=== PATIENT | male | born 1950 | race Caucasian/White ===

== ENCOUNTER → 2016-06-22 | Outpatient (CLI) | payer MEDICARE ==
[~2016-06-22] MED LIST: AMLODIPINE5 MG PO; ANTIVERT25 MG PO; ASPIR 8181 MG PO; CELEXA20 MG PO; DIOVAN320 MG PO; HYDRODIURIL25 MG PO; NAPROSYN500 MG PO; NASONEX0.05 MG/AC NS; QUINAPRIL20 MG PO; SYMBICORT1 AER IH; XARE20MG PO
[2016-06-22 09:07] LABS: HEMOGLOBIN A1c 6.4 % (4.8-5.6)
[2016-06-22 09:18] LABS: ALBUMIN 3.8 gm/dl (3.1-4.5); ALKALINE PHOSPHATASE 52 U/L (45-117); BUN 17 mg/dl (7-24); CARBON DIOXIDE 27 mmol/L (21-32); CHLORIDE 108 mmol/L (98-107); CHOLESTEROL 144 mg/dL (<200); CPK 450 U/L (39-308); EST GLOM FILT AFRICAN AMERICAN > 60 ml/min; GLUCOSE 117 mg/dL (65-99); HDL CHOLESTEROL 54 mg/dl (40-60); LDL CHOLESTEROL 78 mg/dL (9-159); POTASSIUM 3.9 mmol/L (3.5-5.1); SGOT/AST 36 IU/L (3-35); SGPT/ALT 37 U/L (12-78); SODIUM 141 mmol/L (136-145); TOTAL PROTEIN 7.2 gm/dL (6.4-8.2); TRIGLYCERIDES 61 mg/dl (<150); VLDL CHOLESTEROL 12 mg/dL (6-40)
== END | disposition home or self-care (01) ==
LOC: LAB 08:29
PROVIDERS: Family Medicine
DX: E11.9 Type 2 diabetes mellitus without complications (principal); I10 Essential (primary) hypertension; E78.00 Pure hypercholesterolemia, unspecified

== ENCOUNTER → 2016-07-14 | Outpatient (CLI) | payer MEDICARE ==
[2016-07-14 10:01] LABS: ALBUMIN 3.7 gm/dl (3.1-4.5); ALKALINE PHOSPHATASE 54 U/L (45-117); BILIRUBIN, TOTAL 0.6 mg/dl (0.2-1.0); BUN 19 mg/dl (7-24); CARBON DIOXIDE 25 mmol/L (21-32); CHLORIDE 108 mmol/L (98-107); CPK 292 U/L (39-308); EST GLOM FILT AFRICAN AMERICAN > 60 ml/min; GLUCOSE 177 mg/dL (65-99); POTASSIUM 3.7 mmol/L (3.5-5.1); SGOT/AST 27 IU/L (3-35); SGPT/ALT 33 U/L (12-78); SODIUM 143 mmol/L (136-145); TOTAL PROTEIN 7.2 gm/dL (6.4-8.2)
== END | disposition home or self-care (01) ==
LOC: LAB 08:58
PROVIDERS: Family Medicine
DX: R74.8 Abnormal levels of other serum enzymes (principal)

== ENCOUNTER 2016-12-23 14:28 | Inpatient (IN) | payer MEDICARE ==
[~2016-12-23] VITALS: Ht 177.8 cm; Wt 101.2 kg
--- NOTE | ~2016-12-23 | CON ---
[place], [place] REPORT OF CONSULTATION [id number] UNIT #: [id number] ROOM: 405 DOCTOR: JORDAN COE MD BIRTHDATE: [birth year] DOS: REQUESTING PHYSICIAN: Dr. Landry. REASON FOR CONSULTATION: Near syncope. ASSESSMENT: 1. Current presentation with near syncope, mainly with looking up. 2. History of atrial fibrillation. The patient currently in normal sinus rhythm, on Xarelto. 3. Abnormal baseline EKG, consistent with right bundle-branch block. 4. Hypertension. 5. Hyperlipidemia. 6. Diabetes mellitus. 7. Normal echocardiogram and stress test in [address] Guerra. 8. Right carotid bruit. PLAN: 1. Cycle cardiac enzymes. 2. Check orthostatics. 3. Consider switching off diuretic (hydrochlorothiazide). 4. No option for beta mariposa in view of patient's baseline heart rate. 5. Consider ____ bilateral carotid duplex. 6. Consider Neurology consult and MRA of the brain. 7. No further cardiac testing at this time. 8. The patient can be discharged home from the Cardiology point of view. 9. Follow up with Dr. Guerra as an outpatient within 1-2 weeks. 10. Consider long-term monitoring as an outpatient. HISTORY OF PRESENT ILLNESS: The patient is a pleasant 66-year-old gentleman well known to our group with Dr. Guerra. The patient carries history of atrial fibrillation. A full workup was done in 2014, which was normal. Apparently, the patient came into the hospital with 2 episodes of sudden onset of feeling of hot water being poured over his head and his body, mainly when he is looking up, one them while he was shopping and the second one while he was sitting at home doing his usual work on the computer, but which is positioned in higher position. At no time he had any chest pain, chest pressure, heaviness or tightness. No jaw pain or left arm pain. No back pain. The patient denies any symptomatic palpitation or any associated dizziness, lightheadedness or near syncope. No blurry vision. No diplopia. No cough. No fever. No chills. The patient maintains good appetite. No weight loss. He is active, exercises routinely up to 2-1/2 miles of walking on routine basis. He has also elliptical at home, which he uses on routine basis when the weather is cold. PAST MEDICAL HISTORY: As detailed in my assessment. SOCIAL HISTORY: The patient denies any current tobacco, alcohol or illicit drug abuse. FAMILY HISTORY: The patient's mother of breast cancer, his father [place], [place] REPORT OF CONSULTATION NAME: HELENA MARINELLI UNIT #: [id number] ROOM: 405 DOCTOR: JORDAN COE MD BIRTHDATE: [birth year] following a hernia surgery from pneumonia. He has one sister with no reported heart problems. CURRENT MEDICATIONS: Cozaar, Norvasc, Diovan, hydrochlorothiazide, Protonix, Zocor, insulin, Xarelto, Restoril, Zofran, bisacodyl and Tylenol. ALLERGIES: The patient has no known drug allergies. REVIEW OF SYSTEMS: Currently, the patient denies any headache, diplopia or blurry vision. No fever. No chills. No night sweats. No abdominal pain. No bright red blood per rectum or tarry stools. No joint pain. No muscular pain. No anxiety. The patient admits to both depression and anxiety. No polyuria. No polydipsia. No skin rash. Review of all other systems has been negative. PHYSICAL EXAMINATION: GENERAL: The patient alert, oriented x 3, quite pleasant. VITAL SIGNS: The patient's blood pressure 135/53, heart rate 57, respiratory rate of 14, temperature 98.1. HEENT: Extraocular muscle intact. Pupils equal, round, reactive to light. Conjunctivae: No pallor. Throat: No petechiae. NECK: Good carotid upstroke. Faint bruits could be heard over the right carotid. No lymphadenopathy. No thyromegaly. HEART: S1, S2 with holosystolic murmur at left upper sternal border. No rub. No sternal heave. CHEST AND BACK: No deformities. LUNGS: Significant decrease in air movement. Minimal rhonchi could be heard at the base, improved with deep cough. No wheezing. No rales. ABDOMEN: Obese, soft, nontender, present bowel sounds. No masses. No bruits. LOWER EXTREMITIES: There is no edema, with faint distal pulses. NEUROLOGIC: Grossly nonfocal. SKIN: No significant rash. LABORATORY DATA: White count 7.4, hemoglobin 15.5. There are 22% lymphocytes. Glucose 121. Hemoglobin A1c 6.3. Vitamin D is 27. Troponin 0.015, repeat 0.015. Normal thyroid function test. JORDAN COE MD CM:CONSTR:REPORT OF CONSULTATION 1157 12/24/16 1939 interface
--- NOTE | ~2016-12-23 | PR ---
[place], [place] PROGRESS NOTE NAME: HELENA MARINELLI [facility] #: [id number] UNIT #: [id number] ROOM: 405 DOCTOR: URSZULA PHIPPS,ALEXUS BIRTHDATE: [birth year] DOS: 12/26/2016 SUBJECTIVE: The patient was seen at his bedside today, 12/26/2016, for followup of his possible cerebrovascular events. He has not had any further events since hospitalized, but has avoided looking up. He did have an echocardiogram today, which showed normal left ventricular size and systolic function. He does have diastolic relaxation abnormalities. No obvious valve abnormalities or cardiac sources of emboli were seen. The MRA of his neck is not yet done. PHYSICAL EXAMINATION: VITAL SIGNS: Today his pulse is 60 and regular; blood pressure is 130/40. He is afebrile and weighs 101.2 kilograms. NECK: Supple. He has no jugular distention. Carotids are full. LUNGS: Respirations are unlabored. His chest is clear to auscultation and percussion. HEART: Has a regular rhythm with an S4 gallop. ABDOMEN: Benign. EXTREMITIES: Showed no edema. IMPRESSION: Possible vertebrobasilar transient ischemic attack, possibly caused by extension of the neck. PLAN: We are still awaiting his MR angiography of the neck. In the interim, I have started him on an aspirin in addition to his Xarelto. We will continue to follow him in the hospital pending his further evaluation. He may require Neurology evaluation post-discharge. I thank the hospitalist physicians for asking our advice regarding his care. ALEXUS SEAMAN MD CM:PNTRANS [id number] ALEXUS SEAMAN MD 12/26/16 171 interface
--- NOTE | ~2016-12-23 | PR ---
[place], [place] PROGRESS NOTE NAME: HELENA MARINELLI [facility] #: [id number] UNIT #: [id number] ROOM: 405 DOCTOR: ALEXUS SEAMAN MD BIRTHDATE: [birth year] DOS: 12/25/2016 SUBJECTIVE: The patient was seen at his bedside today, 12/25/2016, for followup of episodic lightheadedness. The patient describes 2 episodes in the last week where tipping his head back resulted in a feeling of warmth over his entire body along with lightheadedness and generalized weakness similar to if he could pass out. He did not lose consciousness or fall on either occasion, but felt close. Both episodes occurred whenever he tipped his head backwards. The suspicion is that he does have neurovascular problems in his neck, resulting in near syncope. PHYSICAL EXAMINATION: VITAL SIGNS: Today, his pulse is 52 and regular, blood pressure is 128/68. He is afebrile. NECK: Supple. He has no jugular distention. Carotids are full. I heard no bruits. He had no neck or supraclavicular masses. LUNGS: Respirations were unlabored. His chest was clear to auscultation and percussion. HEART: Had a regular rhythm with an S4 gallop. He had no S3 or murmur. The PMI was not displaced. ABDOMEN: Soft and normally active without masses, organomegaly or bruits. EXTREMITIES: Showed no edema. Peripheral pulses were easily palpated bilaterally. LABORATORY DATA: The patient is waiting for a carotid MRA and echocardiogram, neither have been completed as of 2:00 this afternoon. IMPRESSION: 1. Paroxysmal atrial fibrillation. The patient is currently in sinus rhythm on Xarelto. 2. Hypertension. 3. Hyperlipidemia. 4. Type 2 diabetes mellitus. PLAN: TSH is normal. Cardiac troponin has been negative x 3. An echocardiogram and carotid MRA have been ordered and we will follow up on this later today. For now, I would continue his Xarelto anticoagulant along with his losartan, amlodipine and hydrochlorothiazide for antihypertensives as well as his simvastatin for hyperlipidemia. We will review the results of his carotid MRA when they are available along with his echocardiogram. Further requests and recommendations will be made after those studies have been reviewed. I thank the hospitalist physicians for asking our advice regarding the patient's care. [place], [place] PROGRESS NOTE NAME: HELENA MARINELLI UNIT #: [id number] ROOM: 405 DOCTOR: ALEXUS SEAMAN MD BIRTHDATE: [birth year] ALEXUS SEAMAN MD CM:PNTRANS [id number] ALEXUS SEAMAN MD 12/25/16 2316 interface
[2016-12-23 14:31] VITALS: BP 150/67
[2016-12-23 15:00] VITALS: BP 148/80
--- NOTE | 2016-12-23 15:01 | NUR ---
RN HAD ALREADY DONE EKG BEFORE RESPIRATORY ARRIVED TO ROOM.
[2016-12-23 15:07] LABS: BASO # 0.1 10*3/uL (0.0-0.1); BASO % 0.8 % (0.0-1.0); EOS # 0.2 10*3/uL (0.0-0.4); EOS % 3.3 % (1.0-4.0); HEMATOCRIT 46.3 % (42.0-52.0); HEMOGLOBIN 15.9 g/dl (14.0-18.0); LYMPH # 1.7 10*3/uL (1.3-4.4); LYMPH % 23.1 % (27.0-41.0); MEAN CORPUSCULAR HGB 28.9 pg (27.0-31.0); MEAN CORPUSCULAR HGB CONC 34.3 g/dl (33.0-37.0); MEAN PLATELET VOLUME 9.4 fl (9.6-12.3); MONO # 0.5 10*3/uL (0.1-1.0); MONO % 6.7 % (3.0-9.0); NEUT # 4.8 10*3/uL (2.3-7.9); NEUT % 65.8 % (47.0-73.0); PLATELET COUNT AUTOMATED 195 10*3/uL (130-400); RED BLOOD COUNT 5.51 10*6/uL (4.50-5.90); RED CELL DISTRI WIDTH 13.3 % (0-14.5); WHITE BLOOD COUNT 7.3 10*3/uL (4.8-10.8)
[2016-12-23 15:17] LABS: ACT PARTIAL THROMBO TIME 31.2 SECONDS (20.8-31.5); INTERNATIONAL NORM RATIO 1.1 (2.0-3.5)
[2016-12-23 15:24] LABS: ALKALINE PHOSPHATASE 58 U/L (45-117); BUN 19 mg/dl (7-24); CHLORIDE 106 mmol/L (98-107); CREATININE 1.32 mg/dL (0.70-1.30); SGOT/AST 26 IU/L (3-35); SGPT/ALT 31 U/L (12-78); SODIUM 141 mmol/L (136-145); TOTAL PROTEIN 7.8 gm/dL (6.4-8.2)
[2016-12-23 15:25] LABS: TROPONIN I < 0.015 ng/ml (<0.045)
[2016-12-23 15:44] VITALS: BP 142/72
[2016-12-23 16:17] VITALS: BP 153/64
--- NOTE | 2016-12-23 16:19 | NUR ---
[facility] 66, admitted to , under the services of RICHARD Morgan DO with a diagnosis of CHEST PAIN. Chief complaint is DENIES AT PRESENT. Patient arrived via bed from ER. Monitor applied. Initial assessment completed. Vital signs taken and recorded. RICHARD MORGAN DO notified of admission to the unit. Orders received. See assessment for past medical history, medications and allergies. Patient and/or family oriented to unit. [facility] visitation policy reviewed. Clothing/patient valuable form completed. RAY ANGELES
[2016-12-23] MEDS ORDERED: ZOCOR10 MG PO (16:41)
[2016-12-23] MEDS ORDERED: ONGLYZA2.5 MG PO (16:42)
[2016-12-23] MEDS ORDERED: NASACORT16.9 ML NAS (16:44)
[2016-12-23] MEDS ORDERED: NORVASC10 MG PO (16:47)
--- NOTE | 2016-12-23 17:37 | NUR ---
DR GRIDER NOTIFIED OF CONSULT.
[2016-12-23 20:00] VITALS: BP 154/73
[2016-12-24] VITALS: BP 138/69
[2016-12-24 07:16] LABS: BASO % 0.4 % (0.0-1.0); EOS # 0.3 10*3/uL (0.0-0.4); HEMATOCRIT 46.3 % (42.0-52.0); HEMOGLOBIN 15.5 g/dl (14.0-18.0); LYMPH # 1.7 10*3/uL (1.3-4.4); LYMPH % 22.3 % (27.0-41.0); MEAN CORPUSCULAR HGB 28.4 pg (27.0-31.0); MEAN CORPUSCULAR HGB CONC 33.5 g/dl (33.0-37.0); MEAN PLATELET VOLUME 9.5 fl (9.6-12.3); MONO # 0.6 10*3/uL (0.1-1.0); MONO % 8.2 % (3.0-9.0); NEUT # 4.8 10*3/uL (2.3-7.9); NEUT % 64.7 % (47.0-73.0); PLATELET COUNT AUTOMATED 206 10*3/uL (130-400); RED BLOOD COUNT 5.45 10*6/uL (4.50-5.90); RED CELL DISTRI WIDTH 13.4 % (0-14.5); WHITE BLOOD COUNT 7.4 10*3/uL (4.8-10.8)
[2016-12-24 07:45] LABS: BUN 17 mg/dl (7-24); CHLORIDE 104 mmol/L (98-107); CHOLESTEROL 122 mg/dL (<200); CREATININE 1.16 mg/dL (0.70-1.30); FREE T4 1.19 ng/dl (0.76-1.46); HDL CHOLESTEROL 51 mg/dl (40-60); LDL CHOLESTEROL 50 mg/dL (9-159); POTASSIUM 3.9 mmol/L (3.5-5.1); SODIUM 139 mmol/L (136-145); TRIGLYCERIDES 103 mg/dl (<150); VLDL CHOLESTEROL 21 mg/dL (6-40)
[2016-12-24 08:00] VITALS: BP 135/63
[2016-12-24 08:08] LABS: VITAMIN D, 25-HYDROXY 27.5 ng/mL (30-100)
--- NOTE | 2016-12-24 10:35 | NUR ---
CALLED ON PT'S CONFUSION OF 1000 MED PASS. WILL BE UP TO SEE PT SOON.
[2016-12-24 12:00] VITALS: BP 152/61
[2016-12-24 16:00] VITALS: BP 133/63
[2016-12-24 20:00] VITALS: BP 124/70
[2016-12-25] VITALS: BP 97/49
--- NOTE | 2016-12-25 00:55 | NUR ---
24 HR chart check completed.
[2016-12-25 07:29] LABS: BASO # 0.1 10*3/uL (0.0-0.1); BASO % 0.6 % (0.0-1.0); EOS # 0.6 10*3/uL (0.0-0.4); EOS % 6.4 % (1.0-4.0); HEMATOCRIT 43.8 % (42.0-52.0); HEMOGLOBIN 15.1 g/dl (14.0-18.0); LYMPH # 1.6 10*3/uL (1.3-4.4); LYMPH % 18.3 % (27.0-41.0); MEAN CELL VOLUME 83.7 fl (80.0-94.0); MEAN CORPUSCULAR HGB 28.9 pg (27.0-31.0); MEAN CORPUSCULAR HGB CONC 34.5 g/dl (33.0-37.0); MEAN PLATELET VOLUME 9.7 fl (9.6-12.3); MONO # 0.8 10*3/uL (0.1-1.0); MONO % 9.1 % (3.0-9.0); NEUT # 5.7 10*3/uL (2.3-7.9); NEUT % 65.1 % (47.0-73.0); PLATELET COUNT AUTOMATED 208 10*3/uL (130-400); RED BLOOD COUNT 5.23 10*6/uL (4.50-5.90); RED CELL DISTRI WIDTH 13.2 % (0-14.5); WHITE BLOOD COUNT 8.8 10*3/uL (4.8-10.8)
[2016-12-25 07:44] LABS: BUN 17 mg/dl (7-24); CHLORIDE 105 mmol/L (98-107); POTASSIUM 3.6 mmol/L (3.5-5.1); SODIUM 141 mmol/L (136-145)
[2016-12-25 08:00] VITALS: BP 149/68
--- NOTE | 2016-12-25 08:30 | NUR ---
INSIDE SALES ASSOCIATE VS. PT IN BATHROOM.
--- NOTE | 2016-12-25 09:30 | NUR ---
PT RESTING IN BED, NO DISTRESS NOTED. PT DENIES ANY COMPLAINTS. CALL LIGHT WITHIN REACH.
--- NOTE | 2016-12-25 09:30 | NUR ---
Measurement Specialist in to talk to patient. Patient states lives at HOME with HIS . There are 12 steps in the home. Physician: DR COLIN Pharmacy: [facility]--ONLY FOR MEDS, NOT HOSPITAL Home health services: NONE Patient's level of ADLs: INDEPENDENT Patient has working utilities: YES DME: NONE Follow-up physician's appointment after d/c: WILL BE MADE PRIOR TO DC Does patient want to access PORTAL?: Discharge plan HOME. REMEDIOS LAWSON
[2016-12-25 11:57] VITALS: BP 128/68
--- NOTE | 2016-12-25 12:30 | NUR ---
DR CARLSON IN TO SEE PT AT THIS TIME.
--- NOTE | 2016-12-25 12:47 | NUR ---
MRI FORM COMPLETED WITH PT AT THIS TIME, PT STATES HE DID AT ONE POINT HAVE SOMETHING REMOVED FROM HIS EYE, HE'S NOT SURE IF IT IS METALLIC OR WOOD. STATES THE DR NEVER SAID ANTHING OF ANY SIGNIFICANCE, DISCUSSED WITH DR CARLSON AND STATES OK FOR PT TO GO FOR MRA.
--- NOTE | 2016-12-25 14:14 | NUR ---
HELENA MARINELLI [id number] Please refer to the physician's history and physical for past medical history, comorbid conditions, and allergies. Diagnosis: CHEST PAIN Homar Score: 22,LOW OR NO RISK WOUND DESCRIPTIONS: Location of the wound: LEFT UPPER BACK Type of wound: ABCESS Thickness: Size: 0.5cm x 0.8cm x 0.1cm Tunneling: none Undermining: none Sinus Tract: one Presence of Exudate: Purulent Amount: Light Color: Brown Odor: None Periwound Skin Appearance: Erythema Wound edges: approximated Pain (associated with wound): patient denies pain at time of assessment How does patient state this happened? Patient states he had a cyst that was infected. Patient states he seen Dr. Pérez at his office and Dr. Pérez drained it and told him to apply warm compresses three times a day. This area was healed until Sunday when his "popped" the area open. Patient states he would like to follow up with Dr. Pérez when he is discharged for this area. Surface the patient is resting on: Isoflex SKIN PREVENTION RECOMMENDATION: 1. Pressure redistribution support surface as appropriate 2. Elevate heels 3. Remove boots/TEDS every shift and reapply 4. Head of bed 30 degrees as tolerated 5. Assess nutrition and hydration 6. Manage moisture 7. Avoid the use of containment devices while in bed 8. Use absorptive products on surfaces limit layers of linens on bed 9. Turn and reposition every 1-2 hours in bed and every 1 hour in chair as tolerated 10. Weight shifts every 15 minutes while up in chair 11. Offloading with pillows or device to keep heels elevated off bed 12. Monitor skin at least every shift 13. Inspect under medical devices twice a day WOUND TREATMENT RECOMMENDATIONS: Cleanse area with NS. Apply sureprep and allow to dry and cover with optifoam gentle.
[2016-12-25 16:00] VITALS: BP 122/64
--- NOTE | 2016-12-25 17:02 | NUR ---
WOUND CARE PERFORMED PER ORDER TO LEFT BACK. PT TOLERATED WELL.
[2016-12-25 20:00] VITALS: BP 133/68
--- NOTE | 2016-12-25 20:50 | NUR ---
PATIENT RESTING IN BED WITH NO S/S OF DISTRESS. DENIES CHEST PAIN OR PRESSURE. BED IN LOWEST POSITION, CALL LIGHT IN REACH
[2016-12-26] VITALS: BP 128/64
--- NOTE | 2016-12-26 01:20 | NUR ---
PATIENT RESTING IN BED WITH NO S/S OF DISTRESS. RESPS EASY AND REGULAR. BED IN LOWEST POSITION, CALL LIGHT IN REACH
--- NOTE | 2016-12-26 01:44 | NUR ---
24 HR chart check completed.
--- NOTE | 2016-12-26 07:43 | NUR ---
NOTIFIED DR. ANTOINE OF PT'S BP.
[2016-12-26 08:00] VITALS: BP 130/40; BP 142/80
[2016-12-26 12:00] VITALS: BP 139/72
[2016-12-26 16:00] VITALS: BP 137/64
[2016-12-26] MEDS ORDERED: ASPIRIN ADULT L81 M2 PO (16:20)
[2016-12-26] MEDS ORDERED: Vitamin D PO (16:20)
--- NOTE | 2016-12-26 17:38 | NUR ---
[facility] Discharge instructions reviewed with patient/family. Patient receptive and verbalizes understanding. Follow-up care arranged. Written instructions given to patient/family. RAY ANGELES
== END 2016-12-26 17:38 | disposition home or self-care (01) | DRG 391 ==
LOC: ED 14:28 → EDHOLD 15:42 → 4E 15:42
PROVIDERS: Family Medicine; Hospitalist; Physician Assistant; ADMIT Internal Medicine
DX: K21.9 Gastro-esophageal reflux disease without esophagitis (principal); J18.9 Pneumonia, unspecified organism; I48.0 Paroxysmal atrial fibrillation; E11.65 Type 2 diabetes mellitus with hyperglycemia; I48.2 Chronic atrial fibrillation; R55 Syncope and collapse; E55.9 Vitamin D deficiency, unspecified; E78.5 Hyperlipidemia, unspecified; I34.1 Nonrheumatic mitral (valve) prolapse; I45.10 Unspecified right bundle-branch block; F41.9 Anxiety disorder, unspecified; E66.9 Obesity, unspecified; I10 Essential (primary) hypertension; R07.89 Other chest pain; Z79.01 Long term (current) use of anticoagulants; Z80.3 Family history of malignant neoplasm of breast; Z83.6 Family history of other diseases of the respiratory system; Z83.3 Family history of diabetes mellitus; Z79.899 Other long term (current) drug therapy; Z68.32 Body mass index [BMI] 32.0-32.9, adult

== ENCOUNTER → 2017-01-03 | Outpatient (CLI) | payer MEDICARE ==
[~2017-01-03] MED LIST changes: +ASPIRIN ADULT L81 M2 PO; +NASACORT16.9 ML NAS; +NORVASC10 MG PO; +ONGLYZA2.5 MG PO; +Vitamin D PO; +ZOCOR10 MG PO
[2017-01-03 07:38] LABS: HEMATOCRIT 42.8 % (42.0-52.0); HEMOGLOBIN 14.7 g/dl (14.0-18.0); MEAN CELL VOLUME 85.9 fl (80.0-94.0); MEAN CORPUSCULAR HGB 29.5 pg (27.0-31.0); MEAN CORPUSCULAR HGB CONC 34.3 g/dl (33.0-37.0); MEAN PLATELET VOLUME 10.1 fl (9.6-12.3); RED BLOOD COUNT 4.98 10*6/uL (4.50-5.90); RED CELL DISTRI WIDTH 13.2 % (0-14.5); WHITE BLOOD COUNT 7.1 10*3/uL (4.8-10.8)
[2017-01-03 08:03] LABS: ALBUMIN 3.7 gm/dl (3.1-4.5); ALKALINE PHOSPHATASE 48 U/L (45-117); BUN 24 mg/dl (7-24); CHLORIDE 107 mmol/L (98-107); CHOLESTEROL 116 mg/dL (<200); CREATININE 1.14 mg/dL (0.70-1.30); HDL CHOLESTEROL 49 mg/dl (40-60); LDL CHOLESTEROL 47 mg/dL (9-159); POTASSIUM 3.7 mmol/L (3.5-5.1); SGOT/AST 22 IU/L (3-35); SGPT/ALT 29 U/L (12-78); SODIUM 140 mmol/L (136-145); TRIGLYCERIDES 98 mg/dl (<150); VLDL CHOLESTEROL 20 mg/dL (6-40)
== END ==
LOC: LAB 07:08
PROVIDERS: Family Medicine
DX: I10 Essential (primary) hypertension (principal); E11.9 Type 2 diabetes mellitus without complications; E78.00 Pure hypercholesterolemia, unspecified

== ENCOUNTER → 2017-05-30 | Outpatient (CLI) | payer MEDICARE ==
[2017-05-30 10:31] LABS: ALBUMIN 3.8 gm/dl (3.1-4.5); ALKALINE PHOSPHATASE 61 U/L (45-117); BUN 22 mg/dl (7-24); CHLORIDE 108 mmol/L (98-107); CHOLESTEROL 127 mg/dL (<200); CPK 308 U/L (39-308); CREATININE 1.22 mg/dL (0.70-1.30); HDL CHOLESTEROL 50 mg/dl (40-60); LDL CHOLESTEROL 64 mg/dL (9-159); POTASSIUM 4.3 mmol/L (3.5-5.1); SGOT/AST 27 IU/L (3-35); SGPT/ALT 32 U/L (12-78); SODIUM 142 mmol/L (136-145); TOTAL PROTEIN 7.4 gm/dL (6.4-8.2); TRIGLYCERIDES 65 mg/dl (<150); VLDL CHOLESTEROL 13 mg/dL (6-40)
== END | disposition home or self-care (01) ==
LOC: LAB 09:23
PROVIDERS: Family Medicine
DX: I10 Essential (primary) hypertension (principal); E11.9 Type 2 diabetes mellitus without complications; E78.00 Pure hypercholesterolemia, unspecified

== ENCOUNTER → 2017-08-29 | Outpatient (CLI) | payer MEDICARE ==
[2017-08-29 08:38] LABS: HEMATOCRIT 46.2 % (42.0-52.0); HEMOGLOBIN 15.2 g/dl (14.0-18.0); MEAN CELL VOLUME 86.4 fl (80.0-94.0); MEAN CORPUSCULAR HGB 28.4 pg (27.0-31.0); MEAN CORPUSCULAR HGB CONC 32.9 g/dl (33.0-37.0); MEAN PLATELET VOLUME 9.8 fl (9.6-12.3); RED BLOOD COUNT 5.35 10*6/uL (4.50-5.90); RED CELL DISTRI WIDTH 13.3 % (0-14.5); WHITE BLOOD COUNT 7.1 10*3/uL (4.8-10.8)
[2017-08-29 09:12] LABS: ALBUMIN 3.9 gm/dl (3.1-4.5); ALKALINE PHOSPHATASE 60 U/L (45-117); BUN 20 mg/dl (7-24); CHLORIDE 105 mmol/L (98-107); CHOLESTEROL 113 mg/dL (<200); CPK 409 U/L (39-308); CREATININE 1.22 mg/dL (0.70-1.30); HDL CHOLESTEROL 45 mg/dl (40-60); LDL CHOLESTEROL 51 mg/dL (9-159); POTASSIUM 3.9 mmol/L (3.5-5.1); SGOT/AST 26 IU/L (3-35); SGPT/ALT 29 U/L (12-78); SODIUM 138 mmol/L (136-145); TOTAL PROTEIN 7.4 gm/dL (6.4-8.2); TRIGLYCERIDES 87 mg/dl (<150); VLDL CHOLESTEROL 17 mg/dL (6-40)
== END | disposition home or self-care (01) ==
LOC: LAB 08:05
PROVIDERS: Family Medicine
DX: E11.9 Type 2 diabetes mellitus without complications (principal); E78.00 Pure hypercholesterolemia, unspecified; I10 Essential (primary) hypertension

== ENCOUNTER → 2017-10-03 | Outpatient (CLI) | payer MEDICARE | END | disposition home or self-care (01) | LOC: LAB 09:02 | DX: R74.8 Abnormal levels of other serum enzymes (principal) ==

== ENCOUNTER → 2017-12-04 | Outpatient (CLI) | payer MEDICARE ==
[2017-12-04 08:33] LABS: HEMATOCRIT 47.7 % (42.0-52.0); MEAN CELL VOLUME 85.6 fl (80.0-94.0); MEAN CORPUSCULAR HGB 28.7 pg (27.0-31.0); MEAN CORPUSCULAR HGB CONC 33.5 g/dl (33.0-37.0); MEAN PLATELET VOLUME 9.9 fl (9.6-12.3); RED BLOOD COUNT 5.57 10*6/uL (4.50-5.90); RED CELL DISTRI WIDTH 13.5 % (0-14.5); WHITE BLOOD COUNT 7.5 10*3/uL (4.8-10.8)
[2017-12-04 08:56] LABS: ALBUMIN 3.8 gm/dl (3.1-4.5); ALKALINE PHOSPHATASE 63 U/L (45-117); BUN 16 mg/dl (7-24); CHLORIDE 107 mmol/L (98-107); CHOLESTEROL 119 mg/dL (<200); CPK 188 U/L (39-308); CREATININE 1.22 mg/dL (0.70-1.30); HDL CHOLESTEROL 44 mg/dl (40-60); LDL CHOLESTEROL 57 mg/dL (9-159); POTASSIUM 3.8 mmol/L (3.5-5.1); SGOT/AST 26 IU/L (3-35); SGPT/ALT 30 U/L (12-78); SODIUM 141 mmol/L (136-145); TOTAL PROTEIN 7.7 gm/dL (6.4-8.2); TRIGLYCERIDES 91 mg/dl (<150); VLDL CHOLESTEROL 18 mg/dL (6-40)
== END | disposition home or self-care (01) ==
LOC: LAB 07:57
PROVIDERS: Family Medicine
DX: E78.00 Pure hypercholesterolemia, unspecified (principal); E11.9 Type 2 diabetes mellitus without complications; I10 Essential (primary) hypertension; E55.9 Vitamin D deficiency, unspecified

== ENCOUNTER → 2018-08-21 | Outpatient (CLI) | payer MEDICARE, OTHER ==
[2018-08-21 09:39] LABS: HEMATOCRIT 45.9 % (42.0-52.0); HEMOGLOBIN 15.9 g/dl (14.0-18.0); MEAN CELL VOLUME 84.8 fl (80.0-94.0); MEAN CORPUSCULAR HGB 29.4 pg (27.0-31.0); MEAN CORPUSCULAR HGB CONC 34.6 g/dl (33.0-37.0); MEAN PLATELET VOLUME 9.7 fl (9.6-12.3); RED BLOOD COUNT 5.41 10*6/uL (4.50-5.90); RED CELL DISTRI WIDTH 13.2 % (0-14.5); WHITE BLOOD COUNT 6.5 10*3/uL (4.8-10.8)
[2018-08-21 10:05] LABS: ALBUMIN 3.9 gm/dl (3.1-4.5); ALKALINE PHOSPHATASE 56 U/L (45-117); BUN 20 mg/dl (7-24); CHLORIDE 107 mmol/L (98-107); CHOLESTEROL 128 mg/dL (<200); CREATININE 1.15 mg/dL (0.70-1.30); HDL CHOLESTEROL 47 mg/dl (40-60); LDL CHOLESTEROL 69 mg/dL (9-159); POTASSIUM 3.9 mmol/L (3.5-5.1); SGOT/AST 20 IU/L (3-35); SGPT/ALT 27 U/L (12-78); SODIUM 140 mmol/L (136-145); TOTAL PROTEIN 7.4 gm/dL (6.4-8.2); TRIGLYCERIDES 58 mg/dl (<150); VLDL CHOLESTEROL 12 mg/dL (6-40)
== END | disposition home or self-care (01) ==
LOC: LAB 09:10
PROVIDERS: Family Medicine
DX: E78.00 Pure hypercholesterolemia, unspecified (principal); I10 Essential (primary) hypertension; E11.9 Type 2 diabetes mellitus without complications; E66.9 Obesity, unspecified; E55.9 Vitamin D deficiency, unspecified

== ENCOUNTER → 2018-11-20 | Outpatient (CLI) | payer MEDICARE, OTHER ==
[2018-11-20 10:15] LABS: ALBUMIN 3.9 gm/dl (3.1-4.5); BUN 22 mg/dl (7-24); CHLORIDE 108 mmol/L (98-107); CHOLESTEROL 135 mg/dL (<200); CREATININE 1.23 mg/dL (0.70-1.30); SGOT/AST 17 IU/L (3-35); SGPT/ALT 29 U/L (12-78); SODIUM 139 mmol/L (136-145); TOTAL PROTEIN 7.4 gm/dL (6.4-8.2); TRIGLYCERIDES 66 mg/dl (<150); VLDL CHOLESTEROL 13 mg/dL (6-40)
[2018-11-20 10:16] LABS: ALKALINE PHOSPHATASE 56 U/L (45-117); CPK 176 U/L (39-308); HDL CHOLESTEROL 47 mg/dl (40-60); LDL CHOLESTEROL 75 mg/dL (9-159)
== END | disposition home or self-care (01) ==
LOC: LAB 08:51
PROVIDERS: Family Medicine
DX: E11.9 Type 2 diabetes mellitus without complications (principal); E78.00 Pure hypercholesterolemia, unspecified; I10 Essential (primary) hypertension

== ENCOUNTER → 2019-04-14 | Outpatient (CLI) | payer MEDICARE, OTHER | END | disposition home or self-care (01) | LOC: RAD 09:48 | DX: R05 Cough (principal); I10 Essential (primary) hypertension; E11.9 Type 2 diabetes mellitus without complications; I48.91 Unspecified atrial fibrillation ==

== ENCOUNTER → 2022-01-02 | Outpatient (CLI) | payer MEDICARE, OTHER ==
[2022-01-02 11:57] LABS: BILIRUBIN Negative (Negative); BLOOD Trace-Lysed (Negative); CLARITY Clear (Clear); COLOR Yellow (Yellow); GLUCOSE Negative (Negative); KETONE Negative (Negative); LEUKO ESTERASE Negative (Negative); NITRITE Negative (Negative); UROBILINOGEN 0.2 E.U./dl (0.0-1.0)
== END | disposition home or self-care (01) ==
LOC: LAB 11:22
PROVIDERS: ATTEND Nurse Practitioner Family
DX: N40.1 Benign prostatic hyperplasia with lower urinary tract symptoms (principal); R30.0 Dysuria

== ENCOUNTER → 2022-01-10 | Outpatient (CLI) | payer MEDICARE, OTHER ==
[2022-01-10 11:02] LABS: BILIRUBIN Negative (Negative); BLOOD Negative (Negative); CLARITY Clear (Clear); COLOR Yellow (Yellow); GLUCOSE Negative (Negative); KETONE Negative (Negative); LEUKO ESTERASE Negative (Negative); NITRITE Negative (Negative); PH 6.5 (4.5-8.0); UROBILINOGEN 0.2 E.U./dl (0.0-1.0)
[2022-01-10 11:47] LABS: EPITHELIAL CELLS 0-2; MUCOUS 1+; WBC 0-2 wbc/hpf (0-5)
== END | disposition home or self-care (01) ==
LOC: LAB 08:02
PROVIDERS: ATTEND Nurse Practitioner Family
DX: R31.29 Other microscopic hematuria (principal)

== ENCOUNTER → 2022-08-04 | Outpatient (CLI) | payer MEDICARE, OTHER ==
[~2022-08-04] MED LIST changes: +ALOGLIPTIN12.5 MG PO; +AMLODIPINE BESY10 MG PO; +ARNUITY ELLIPT50 MCG INH; +CENTRUM SILVER1 EACH PO; +COQ-10100 MG PO; +FINASTERIDE5 M1 PO; +FISH OIL 1,0001 EAC2 PO; +HYDROCHLOROTH12.5 M2 PO; +LOSARTAN POTAS100 MG PO; +PRAVASTATIN SOD10 MG PO; +SYMB80 INH; +VITAMIN D250 MCG PO
[2022-08-04 10:31] LABS: BILIRUBIN Negative (Negative); BLOOD Negative (Negative); CLARITY Clear (Clear); COLOR Yellow (Yellow); GLUCOSE Negative (Negative); KETONE Negative (Negative); LEUKO ESTERASE Negative (Negative); NITRITE Negative (Negative); SPECIFIC GRAVITY <= 1.005 (1.001-1.030); UROBILINOGEN 0.2 E.U./dl (0.0-1.0)
[2022-08-04 10:48] LABS: WBC 0-2 wbc/hpf (0-5)
[2022-08-04 10:49] LABS: RBC 0-2 rbc/hpf (0-2)
== END | disposition home or self-care (01) ==
LOC: LAB 09:51
PROVIDERS: ATTEND Nurse Practitioner Family
DX: R31.29 Other microscopic hematuria (principal)